=== PATIENT | female | born 1985 | race African-American/Black ===

== ENCOUNTER 2018-07-21 05:20 | Emergency (ER) | payer MEDICAID ==
[~2018-07-21] VITALS: Ht 170.2 cm; Wt 116.1 kg
[2018-07-21] MEDS ORDERED: NKM (05:42)
[2018-07-21 05:55] VITALS: BP 116/69
[2018-07-21] MEDS ORDERED: Ketorolac 60mg Inj IM ONE (06:00)
[2018-07-21] MEDS ORDERED: NAPROXEN375 M2 ORAL (06:02)
--- NOTE | 2018-07-21 06:02 | Emergency Room Report ---
History of Present Illness General Chief Complaint: Toothache Source: Patient Present Illness HPI This patient c/o toothache 1.5 days. Related to a tooth that broke three years ago. No fever, no recent issues/trauma. She plans to see a dentist today or tomorrow. No dental care for several years. Allergies: Coded Allergies: No Known Allergies (Unverified , 07/21/18) Patient History Last Menstrual Period: 1 week ago Nursing Documentation-[facility] Past Medical History: No Stated History Review of Systems Constitutional: Reports: no symptoms Eye: Reports: no symptoms ENT: Reports: see HPI, mouth pain Respiratory: Reports: no symptoms Cardiovascular: Reports: no symptoms Gastrointestinal: Reports: no symptoms Genitourinary: Reports: no symptoms Musculoskeletal: Reports: no symptoms Skin: Reports: no symptoms Psychiatric: Reports: no symptoms Neurological: Reports: no symptoms Endocrine: Reports: no symptoms Hematologic/Lymphatic: Reports: no symptoms Allergic: Reports: no symptoms All Other Systems: negative except mentioned in HPI Physical Exam Vital Signs Date Time Temp Pulse Resp B/P (MAP) Pulse Ox O2 Delivery O2 Flow Rate FiO2 07/21/18 05:40 98.2 54 16 116/69 98 Room Air 98.2 Sp02 EP Interpretation: reviewed, normal General Appearance: normal inspection, well appearing, no apparent distress, alert, GCS 15, non-toxic Head: normocephalic, atraumatic Eyes: bilateral eye normal inspection, bilateral eye PERRL, bilateral eye EOMI ENT: normal ENT inspection, hearing grossly normal, normal pharynx, no angioedema, normal voice, moist mucus membranes, other - several fx. teeth. tooth #5 is broken and tender to palpation with tongue depressor. no abscess/ swelling. Neck: normal inspection, full range of motion, supple, no meningismus, no bony tend Respiratory: normal inspection, lungs clear, normal breath sounds, no rhonchi, no respiratory distress, no retraction, no accessory muscle use, no wheezing Cardiovascular #1: normal inspection, regular rate, rhythm, no edema Gastrointestinal: normal inspection, normal bowel sounds, non tender, soft, no mass, non-distended Musculoskeletal: gait/station normal, normal range of motion Neurologic: normal inspection, alert, oriented x3, responsive, motor strength/ tone normal Psychiatric: normal inspection, judgement/insight normal, memory normal Suicide Risk Assessment: Suicidal Ideation: No Had intent to initiate attempt: No Pt's plan for suicide attempt: No Has means to complete attempt: No Skin: normal inspection, normal color, no rash, warm/dry Medical Decision Making Diagnostic Impression: Primary Impression: Pain, dental ER Course the pain is the fractured tooth itself which is exposed. she has no signs infection at this time. she has medical and will go to dentist today/tomorrow. Last Vital Signs Date Time Temp Pulse Resp B/P (MAP) Pulse Ox O2 Delivery O2 Flow Rate FiO2 07/21/18 05:55 98.2 54 16 116/69 98 Room Air 98.2 Status: improved Disposition: HOME, SELF-CARE Scripts Naproxen* (NAPROXEN*) 375 Mg Tablet. 375 MG ORAL TWICE A DAY for 10 Days, #20 TAB Prov: Bin Mason M.D. 07/21/18 Patient Instructions: Dental Pain Bin Mason M.D. Jul 21, 2018 06:02
[2018-07-21 06:21] VITALS: BP 116/69
[2018-07-21] MEDS ORDERED: PENICILLIN V P500 MG PO (23:44)
== END 2018-07-21 07:30 | disposition home or self-care (01) ==
LOC: EMR 06:00
DX: S02.5XXA Fracture of tooth (traumatic), initial encounter for closed fracture (principal); K08.89 Other specified disorders of teeth and supporting structures
CPT/HCPCS: 96372; 99283

== ENCOUNTER 2018-07-21 23:06 | Emergency (ER) | payer MEDICAID ==
[~2018-07-21] VITALS: Ht 170.2 cm; Wt 116.1 kg
[~2018-07-21 23:06] MED LIST: NAPROXEN375 M2 ORAL; NKM
--- NOTE | 2018-07-21 23:38 | Emergency Room Report ---
History of Present Illness General Chief Complaint: Toothache Source: Patient Present Illness HPI is a pleasant healthy 32-year-old female presents with upper tooth pain. Pain is present for the last 2 days. She was seen by my colleague earlier this morning. Prescribed naproxen with only minimal relief of pain. She's had had a broken tooth for 3 years. She plans follow with dentist tomorrow Allergies: Coded Allergies: No Known Allergies (Unverified , 07/21/18) Patient History Past Medical History: see triage record Last Menstrual Period: end jun Reviewed Nursing Documentation: PMH: Agreed; PSxH: Agreed Nursing Documentation-PMH Past Medical History: No Stated History Review of Systems Constitutional: Denies: fever, malaise Physical Exam Vital Signs Date Time Temp Pulse Resp B/P (MAP) Pulse Ox O2 Delivery O2 Flow Rate FiO2 07/21/18 23:27 98.4 73 18 123/72 97 Room Air 98.4 Sp02 EP Interpretation: reviewed, normal General Appearance: normal inspection, well appearing, no apparent distress, alert, GCS 15, non-toxic Head: normocephalic, atraumatic ENT: normal voice, moist mucus membranes, other - tooth #6 with decay and fracture no surrounding edema or purulence normal gumline Neck: normal inspection, full range of motion, supple Respiratory: no respiratory distress Musculoskeletal: gait/station normal Psychiatric: normal inspection, judgement/insight normal, memory normal Medical Decision Making Diagnostic Impression: Primary Impression: Dental caries Additional Impressions: Toothache Acute pulpitis ER Course dental caries toothache given norco and PCN one dose each in ED rx: PCN Last Vital Signs Date Time Temp Pulse Resp B/P (MAP) Pulse Ox O2 Delivery O2 Flow Rate FiO2 07/21/18 23:27 98.4 73 18 123/72 97 Room Air 98.4 Status: unchanged Disposition: HOME, SELF-CARE Mindy Rolon MD Jul 21, 2018 23:37
[2018-07-21] MEDS ORDERED: PENICILLIN V P500 MG PO (23:44)
[2018-07-21] MEDS ORDERED: HYDROcodone/Acetamin 10/325 tab ORAL ONE (23:45)
[2018-07-21] MEDS ORDERED: Penicillin Vk 250mg tab ORAL ONE (23:45)
[2018-07-22 00:15] VITALS: BP 123/72
[2018-07-22 02:15] VITALS: BP 123/72
== END 2018-07-22 00:15 | disposition home or self-care (01) ==
LOC: EMR 23:36
DX: K02.9 Dental caries, unspecified (principal); K04.01 Reversible pulpitis; F17.200 Nicotine dependence, unspecified, uncomplicated
CPT/HCPCS: 99282; C9399